=== PATIENT | female | born 1955 | race Caucasian/White ===

== ENCOUNTER 2017-01-31 02:36 | Inpatient (IN) | payer OTHER ==
[~2017-01-31] VITALS: Ht 162.6 cm; Wt 109.3 kg
[~2017-01-31 02:36] MED LIST: ALLOPURINOL100 M1 PO; ALPRAZOLAM1 M2 PO; BENTYL20 M1 PO; CLARITIN-D 241 EACH PO; COLCHICINE0.6 M2 PO; FOLIC ACID0.8 M2 PO; GABAPENTIN600 M1 PO; HYDROCHLOROTHIA25 M1 PO; LIALDA1.2 G1 PO; OMEPRAZOLE40 M1 PO; PREDNISONE10 M2 PO; TUMERIC PO; VICODIN 5-3001 EACH PO; VITAMIN C250 M3 PO; VITAMIN E100 UNI2 PO; ZOFRAN4 M2 PO
--- NOTE | 2017-01-31 12:32 | Operative Report ---
Operative/Inv Procedure Report Surgery Date: 01/31/17 Name of Procedure: Left total knee arthroplasty Pre-Operative Diagnosis: Left knee osteoarthritis primary Post-Operative Diagnosis: Same Estimated Blood Loss: less than 50ml Surgeon/Linotypist: JES SEYMOUR,Dylan HAYS Anesthesia: block Implants: Laurie triathlon-size 4 femur, size 3 tibia, 9 mm polyethylene insert cruciate retaining, 29 patella Drains: None Specimens: Femoral, tibial, patellar bone Microbiology: Urine Tourniquet: 58 minutes Complications: None Condition: Stable Operative Indication: Patient is a 61-year-old woman who has a long history of left knee pain. She's been treated with medications, injections, activity modifications and physical therapy for her diagnosis of ultimately end-stage osteoarthritis of the left knee. Conservative measures provided only short-term relief of her pain and symptoms. She wished to proceed with total knee arthroplasty after risks, benefits and expectations were discussed which included but were not limited to persistent knee pain, need for subsequent surgery, infection, DVT, injury to blood vessel or nerve and anesthesia risks Operative/Procedure Note Note: Patient was brought to the operating room and transferred to the operating table. Once under appropriate anesthesia the left lower extremity was prepped and draped in standard fashion. Preoperative IV antibiotic's were given prophylactically. A standard anterior incision was made after the leg was elevated exsanguinated and tourniquet was inflated. Incision was taken down sharply to the underlying retinaculum. A medial retinacular approach was used with extension into the quadriceps tendon. Osteophytes were excised. Remnants of the anterior horn of the medial lateral meniscal tissues were excised. Remnants of the ACL were excised. The knee was flexed patella was subluxed and then some osteophytes removed from the notch. I used a drill to enter the intramedullary canal for the intramedullary guide for the femoral cut. Guide was set for a 6 valgus cut. The cut was made while protecting the soft tissues. I then sized the femur to a size 4. Size 4 cutting jig was pinned in place and the 4 cuts were made while protecting the soft tissues and then the used the external tibial alignment guide and pin the cutting block for this cut in neutral position for medial to lateral and review space posterior slow-paced on preoperative templating and intraoperative findings. The cut was made after recessed the PCL in place and PCL retractor posteriorly. Tibia was sized to a size 3. I did a trial reduction with a size 3 tibia, size 4 femur and a 9 mm insert. Full extension. Patella was measured and the appropriate thickness was removed and replaced with a 29 mm patella. The 3 lug holes were drilled was taken through range of motion. 2 lug holes of the femur were drilled and the rotation of tibia was marked after and satisfied with the stability of the patellofemoral joint. All and she was removed from the knee. Final preparation the tibia included tibial punch completed. All instruments were removed from the knee copious irrigation the knee followed as the cement is was being mixed on the back table. Once the cement was ready was applied to the dry clean bony surfaces of the tibia. The into medullary hole in the femur was plugged with the anterior chamfer bone prior to cementing. Cement was applied to the dry clean bony surfaces of the femur. The size 3 tibia and the size [address] and excess cement was removed with curettes. The knee was taken out to full since with a 9 mm insert. Cement was applied to the dry clean bony surfaces of the patella. The 29 mm patella was impacted in place and excess cement was removed with a knife. As the cement was hardening in full extension I did appear articular pericapsular injection of exparel for postoperative pain management. Once the cement was hardening took the knee through range of motion. I was satisfied with the stability with a 9 mm insert. The trial insert was removed. The tibial tray was copiously irrigated. A major there was no remaining soft tissue, bone fragment or cement fragments within the tibial tray. The definitive size 9 mm cruciate retaining insert was impacted in place and the locking mechanism was confirmed. Knee was taken through range of motion I was satisfied with the full extension mid flexion stability and full flexion to gravity. Tourniquet was deflated at 58 minutes. Hemostasis was obtained. No drains were used. The retinaculum and quad tendon was closed with interrupted #1 Vicryl sutures. This was followed by subcutaneous subcutaneous case closure with 2-0 Vicryl in 2 layers and skin was closed with a running 3-0 Vicryl suture and the knee in flexion. Every level of closure was followed by copious irrigation. Appropriate just his were applied and patient was awakened and taken the recovery room in good condition. No intraoperative complications. Blood loss was approximately 50 mL Discharge Disposition: PACU
[2017-01-31] MEDS ORDERED: COUMADIN5 M2 PO (13:39)
[2017-01-31] MEDS ORDERED: DILAUDID2 M1 PO (13:40)
--- NOTE | 2017-01-31 13:46 | Patient Discharge Instructions ---
Discharge Instructions General Discharge Information You were seen/treated for: LEFT KNEE PAIN You had these procedures: LEFT TOTAL KNEE REPLACEMENT Watch for these problems: INCREASING PAIN DESPITE THE USE OF PAIN MEDICATION, REDNESS, WARMTH, SWELLING. DRAINAGE OF ANY TYPE FROM INCISION. INABILITY TO BEAR WEIGHT ON LEFT LEG. FEVER GREATER THAN 101.5 Do not soak the wound: Yes No bath, but you may shower: Yes Special Instructions: YOU ARE TAKING A BLOOD THINNING MEDICATION CALLED COUMADIN. ANOTHER NAME FOR THIS MEDICATION IS WARFARIN. THE DOSE OF THIS MEDICATION IS SUBJECT TO CHANGE DAILY. IT IS BASED ON LABWORK CALLED INR. YOUR INR WILL BE CHECKED AT A MINIMUM [address] ANDRE WILL BE MADE AWARE OF YOUR INR AND WILL INSTRUCT YOU TO HOW MUCH COUMADIN TO TAKE EACH DAY. PLEASE BE SURE YOU HAVE RECEIVED INSTRUCTIONS PRIOR TO TAKING. IF YOU HAVE NOT HEARD FROM HIS OFFICE, PLEASE CALL. Diet Continue normal diet: Yes Recommended Diet: Regular Additional DIET Information: ADVANCE TOLERATED Activity Full Activity/No Limits: No Activity Self Limited: Yes Pounds, do NOT lift more than: 10 Additional ACTIVITY Info: WEIGHT BEAR TOLERATED ON LEFT LEG Acute Coronary Syndrome Inclusion Criteria At DC or during hospital stay patient has or had the following: ACS DIAGNOSIS No Discharge Core Measures Meds if any: Prescribed or Continued at Discharge Meds if any: NOT Prescribed or Continued at Discharge Congestive Heart Failure Inclusion Criteria At DC or during hospital stay patient has or had the following: CHF DIAGNOSIS No Discharge Core Measures Meds if any: Prescribed or Continued at Discharge Meds if any: NOT Prescribed or Continued at Discharge Cerebrovascular accident Inclusion Criteria At DC or during hospital stay patient has or had the following: CVA/TIA Diagnosis No Discharge Core Measures Meds if any: Prescribed or Continued at Discharge Meds if any: NOT Prescribed or Continued at Discharge Venous thromboembolism Inclusion Criteria VTE Diagnosis No VTE Type NONE VTE Confirmed by (Test) NONE Discharge Core Measures - Per Current guidelines, there needs to be overlap - treatment for the first 5 days of Warfarin therapy. - If discharged on Warfarin prior to 5 days of - overlap therapy, the patient will need to be - assessed for post discharge needs including - *Post discharge parental anticoagulation - *Warfarin and/or parental anticoagulation education - *Follow up date to check INR post discharge At least 5 days overlap therapy as Inpatient No Meds if any: Prescribed or Continued at Discharge Note: Overlap Therapy is Warfarin and Anticoagulant Meds if any: NOT Prescribed or Continued at Discharge
--- NOTE | 2017-01-31 13:50 | Surgical Discharge Summary ---
Visit Information Visit Dates Admission Date: 01/31/17 Discharge Date: 02/03/17 History of Present Illness Chief Complaint: LEFT KNEE PAIN Medical History Neurological: NONE EENT: NONE Cardiovascular: PALPITATIONS Respiratory: bronchitis, emphysema Gastrointestinal: ulcerative colitis, SWOLLEN LOUISE Hepatic: NONE Renal: NONE Musculoskeletal: osteoarthritis, BURSITIS FIBROMYALGIA Psychiatric: anxiety, insomnia Endocrine: BORDERLINE DIABETIC Blood Disorders: NONE Cancer(s): NONE CONCESSION WORKER/Reproductive: OVARIAN CYST Surgical History Pertinent Surgical History: cholecystectomy, Psychosocial History What is Your Primary Language? Latvian Review of Systems: SEE H&P Hospital Course Course Attending Physician: JES SEYMOUR,[facility] Primary Care Physician: MARY ANN SEYMOUR,[facility] Course: VON WAS ADMITTED TO HOSPITAL ON 01/31/2017 FOR AN ELECTIVE LEFT TOTAL KNEE REPLACEMENT. SHE TOLERATED THE PROCEDURE WELL. SHE WAS TRANSFERRED TO A GENERAL SURGICAL FLOOR. HER DIET WAS ADVANCED TOLERATED. SHE VOIDED SPONTANEOUSLY. HER VITAL SIGNS WERE STABLE AND WITHIN NORMAL LIMITS. HER PAIN WAS WELL CONTROLLED WITH ORAL PAIN MEDICATIONS. SHE WAS EVALUATED AND TREATED BY PHYSICAL THERAPY. SHE WAS DEEMED APPROPRITE FOR DISCHARGE. Complications: None Allergies: Coded Allergies: codeine (Intermediate, SICK TO STOMACH 04/03/16) oxycodone (From PERCOCET) (Mild, ITCHY ON THE INSIDE 04/03/16) NSAIDS (Non-Steroidal Anti-Inflamma (UNKNOWN 01/31/17) FROM ORDER SHEET OF 01/31/17 (SJS) Sulfa (Sulfonamide Antibiotics) (HAS ULCERATIVE COLITIS 04/09/16) varenicline (From CHANTIX) (? 01/21/17) aspirin (R/T HX ULCERATIVE COLITIS 04/03/16) duloxetine (From CYMBALTA) (I ZONED AND LOOKED LIKE A MAD WOMAN 04/03/16) Disposition Summary Disposition Principal Diagnosis: LEFT KNEE UNILATERAL PRIMARY OSTEOARTHRITIS Additional Diagnosis: NONE Discharge Disposition: SNF Discharge Instructions General Discharge Information Code Status: Full Code Patient's Diet: REGULAR, ADVANCE TOLERATED Patient's Activity: WEIGHT BEAR TOLERATED ON LEFT LEG Follow-Up Instructions/Appts: PLEASE CONTACT DR. ANDRE' OFFICE TO ARRANGE/CONFIRM FOLLOW UP APPOINTMENT. HE WOULD LIKE FOR YOU TO BE SEEN IN 2 WEEKS FROM DATE OF SURGERY. Medications at Discharge Discharge Medications: Continue taking these medications: Mesalamine (Lialda) 1.2 GM TABLET.DR 1 Tablet ORAL TWICE DAILY Qty = 60 Comments: PER PT Omeprazole (Omeprazole) 40 MG CAPSULE.DR 1 Capsule ORAL TWICE DAILY Qty = 60 Comments: PER PT Alprazolam (Alprazolam) 1 MG TABLET 1 Tablet ORAL THREE TIMES A DAY NEEDED as needed for ANXIETY Qty = 90 Comments: PER PT Gabapentin (Gabapentin) 600 MG TABLET 1 Tablet ORAL THREE TIMES DAILY as needed for NERVE PAIN Qty = 90 Comments: PER PT Allopurinol (Allopurinol) 100 MG TABLET 1 Tablet ORAL TWICE DAILY Loratadine/Pseudoephedrine (Claritin-D 24 Hour Tablet) 10 MG-240 MG TAB.ER.24H 1 Tablet ORAL DAILY Start taking the following new medications: Warfarin Sodium (Coumadin) 5 MG TABLET 1 Tablet ORAL DAILY Qty = 30 No Refills Instructions: DOSE MAY CHANGE DAILY, AWAIT SPECIFIC INSTRUCTIONS PRIOR TO TAKING Hydromorphone HCl (Dilaudid) 2 MG TABLET 1-2 Tablet ORAL EVERY 4-6 HOURS as needed for PAIN Qty = 36 No Refills
[2017-01-31 16:00] VITALS: BP 120/56
--- NOTE | 2017-01-31 16:38 | PN- Orthopedic ---
Subjective Subjective: poc s/p left tka comfortable, no major complaints deneis cp, sob, no n+v Objective Vital Signs and I&Os vss Physical Exam: cv: rrr lungs: clear abd: soft, +bs ext: left le drsg dry distal cms intact on-q in place pulliam: clear urine Assessment/Plan Assessment/Plan ortho stable plan coumadin for dvt prophpylaxis keep pulliam til am may be oob to chair with nursing staff advance diet as tolerated keep ivf until leon po snf planning Core Measures/Miscellaneous Venous Thromboembolism VTE Risk Factors: Age > 40, Surgery VTE Contraindications: No Contraindications VTE Diagnosis: No Beta Luis Is Beta Luis a Home Med? No Antibiotics Is Patient on Antibiotics? Yes
[2017-01-31 19:34] VITALS: BP 137/67
[2017-01-31 20:20] VITALS: BP 120/72
[2017-01-31 22:23] VITALS: BP 140/80
[2017-02-01 01:57] VITALS: BP 122/72
[2017-02-01 07:13] VITALS: BP 138/74
--- NOTE | 2017-02-01 07:57 | PN- Orthopedic ---
See Addendum Subjective Subjective: Patient without complaints of significant pain this am. Has yet to ambulate. Denies chest pain, shortness of breath and difficulty breathing. Denies nausea and vomitting. Has been tolerating po. Objective Vital Signs and I&Os Vital Signs Date Time Temp Pulse Resp B/P Pulse O2 O2 Flow FiO2 Ox Delivery Rate 02/01 0713 97.6 65 20 138/74 94 Nasal 2.0L Cannula 02/01 0157 97.7 74 20 122/72 93 Nasal 2.0L Cannula 02/01 0000 Nasal 2.0L Cannula 01/31 2223 98.8 70 20 140/80 98 01/31 2020 97.8 80 20 120/72 95 01/31 1934 97.9 76 20 137/67 94 Nasal 2.0L Cannula 01/31 1600 94 Nasal 2.0L Cannula 01/31 1600 97.8 66 16 120/56 94 Nasal 2.0L Cannula Intake & Output 02/01 0800 / 0000 01/31 1600 01/31 0800 01/31 0000 01/30 1600 Intake Total 975 Output Total 350 1550 Balance -350 -575 Intake, IV 525 Intake, Oral 450 Output, Urine 350 1550 Patient 241 lb Weight Physical Exam: General: Alert and oriented x3, no acute distress Cardiac: RRR, s1s2 Pulmonary: CTA bilaterally Abdomen: Non-distended, non-tender Extremiteis: Moves all extremities, distal sensation intact. Motor 5/5 in plantar and dorsi flexion. Skin warm and well perfused. DP pulses palpable bilaterally. Bilateral calves soft and non-tender. Surgical site: Left leg: Dressing dry and intact. ON Q in place, no suggestion of leak Assessment/Plan Assessment/Plan This is a 61 year old female. POD 1, s/p left TKR. PMH significant for ulcerative coliltis. -LIALDA: Patient to take home medication, substitute from our pharmacy not acceptable per her GI doctor. Spoke with Michael Chappell from pharmacy, home med ordered as non-formulary and will be assessed by pharmacy prior to being approved for administration. -IV FLUIDS: to be d/c'd, patient tolerating adequate po -BRUMFIELD CATHETER: to be d/c'd -PAIN: Continue current pain regimen -ACTIVITY: OOB with pt today, ambulate. WBAT. Patient instructed to no longer rest with pillow under surgical knee -LABS: F/U cbc, bep. inr -DVT ppx: Coumadin to be dosed daily per INR, target INR 2-3, ALPS in place Will d/w Dr. Payton Core Measures/Miscellaneous Venous Thromboembolism VTE Risk Factors: Age > 40, Surgery VTE Contraindications: No Contraindications VTE Diagnosis: No Beta Luis Is Beta Luis a Home Med? No Antibiotics Is Patient on Antibiotics? Yes
[2017-02-01 08:12] LABS: ABSOLUTE BASOPHIL COUNT 0 /CUMM (0.0-0.2); ABSOLUTE EOSINOPHIL COUNT 0 /CUMM (0.0-0.7); ABSOLUTE GRANULOCYTE CT 9.7 /CUMM (1.4-6.5); ABSOLUTE LYMPH COUNT 1.2 /CUMM (1.2-3.4); ABSOLUTE MONOCYTE COUNT 0.6 /CUMM (0.10-0.60); BASOPHIL % 0.2 % (0.0-2.0); EOSINOPHIL % 0.1 % (0-5); HEMATOCRIT 42.1 % (37-47); MEAN CORPUSCULAR HGB 28.8 PG (27.0-31.0); MEAN CORPUSCULAR HGB CONC 32.7 G/DL (33.0-37.0); MEAN CORPUSCULAR VOLUME 87.9 FL (81.0-99.0); MEAN PLATELET VOLUME 8.3 FL (7.4-10.4); PLATELET COUNT 238 /CUMM (130-400); RBC DISTRIBUTION WIDTH 14.8 % (11.5-14.5); RED BLOOD CELL CT 4.79 /CUMM (4.20-5.40); WHITE BLOOD CELL COUNT 11.5 /CUMM (4.8-10.8)
[2017-02-01 08:51] LABS: PT 11.8 SEC (9.4-12.5)
[2017-02-01 08:55] LABS: GRANULOCYTE % 84.1 % (42.2-75.2)
[2017-02-01 10:52] VITALS: BP 108/63
[2017-02-01 13:58] VITALS: BP 112/68
[2017-02-01 22:31] VITALS: BP 124/68
--- NOTE | 2017-02-02 07:34 | PN- Orthopedic ---
See Addendum Subjective Subjective: Reports pain improves with dilaudid tablets. Low grade temp (99) overnight, but admits she hasn't been using an incentive spirometer. Denies chills/sweats. No dysuria. No shortness of breath. No dizziness. No chest pains. Passing flatus but no bm yet. Out of bed with PT yesterday, ambulating with rolling walker assistance. Anticipates discharge to [facility] tomorrow. Objective Vital Signs and I&Os Vital Signs Date Time Temp Pulse Resp B/P Pulse O2 O2 Flow FiO2 Ox Delivery Rate 02/01 2231 98.2 69 19 124/68 97 02/01 1428 Room Air 2.0L 02/01 1358 98.3 69 20 112/68 95 02/01 1052 98.0 70 20 108/63 92 Room Air Intake & Output 02/02 0800 02/02 0000 02/01 1600 02/01 0800 02/01 0000 01/31 1600 Intake Total 480 1020 1000 975 Output Total 700 282 985 3917 Balance -220 420 650 -575 Intake, IV 300 600 525 Intake, Oral 480 720 400 450 Number 0 Bowel Movements Output, Urine [phone] Patient 241 lb Weight Physical Exam: General - alert & oriented x 3. comfortable. no acute distress. Lungs - clear bilaterally. no w/r/r. Cardiac - s1s2. reg. Abdomen - soft. nontender. Extremities - warm bilaterally. dressing changed, left knee. steri strips in place. no erythema or exudates. calves soft and nontender b/l. on q removed. nvi. Assessment/Plan Assessment/Plan This is a 61 year old female with hx UC POD#2 s/p left TKR tolerating diet pain controlled with dilaudid dressing changed on q removed f/u labs coumadin accordingly - dvt ppx continue PT IS teaching bowel regime ordered d/c planning, likely [facility] tomorrow will d/w Core Measures/Miscellaneous Venous Thromboembolism VTE Risk Factors: Age > 40, Surgery VTE Contraindications: No Contraindications VTE Diagnosis: No Beta Luis Is Beta Luis a Home Med? No Antibiotics Is Patient on Antibiotics? Yes
[2017-02-02 07:45] VITALS: BP 112/60
[2017-02-02 08:18] LABS: ABSOLUTE BASOPHIL COUNT 0.1 /CUMM (0.0-0.2); ABSOLUTE EOSINOPHIL COUNT 0.2 /CUMM (0.0-0.7); ABSOLUTE GRANULOCYTE CT 6.7 /CUMM (1.4-6.5); ABSOLUTE LYMPH COUNT 3.2 /CUMM (1.2-3.4); ABSOLUTE MONOCYTE COUNT 1.1 /CUMM (0.10-0.60); BASOPHIL % 0.5 % (0.0-2.0); EOSINOPHIL % 1.5 % (0-5); HEMATOCRIT 40.9 % (37-47); MEAN CORPUSCULAR HGB 28.7 PG (27.0-31.0); MEAN CORPUSCULAR HGB CONC 32.6 G/DL (33.0-37.0); MEAN CORPUSCULAR VOLUME 88.1 FL (81.0-99.0); MEAN PLATELET VOLUME 8.3 FL (7.4-10.4); PLATELET COUNT 209 /CUMM (130-400); PT 13.5 SEC (9.4-12.5); RBC DISTRIBUTION WIDTH 14.7 % (11.5-14.5); RED BLOOD CELL CT 4.64 /CUMM (4.20-5.40); WHITE BLOOD CELL COUNT 11.2 /CUMM (4.8-10.8)
--- NOTE | 2017-02-02 10:40 | RADIOLOGY REPORT ---
EXAMINATION: XR KNEE, LEFT CLINICAL INFORMATION: Status post left total knee arthroplasty. COMPARISON: None TECHNIQUE: 2 views, 3 images of the left knee. FINDINGS: Postsurgical changes of total left knee arthroplasty are noted showing intact hardware and satisfactory alignment. Moderate diffuse osteopenia is noted involving all the visualized bones. IMPRESSION: Postsurgical changes of total left knee arthroplasty showing intact hardware and satisfactory alignment.
[2017-02-02 14:17] VITALS: BP 120/70
[2017-02-02 22:46] VITALS: BP 124/78
[2017-02-03 06:38] VITALS: BP 110/71
[2017-02-03 08:12] LABS: ABSOLUTE BASOPHIL COUNT 0 /CUMM (0.0-0.2); ABSOLUTE EOSINOPHIL COUNT 0.3 /CUMM (0.0-0.7); ABSOLUTE GRANULOCYTE CT 5.4 /CUMM (1.4-6.5); ABSOLUTE LYMPH COUNT 2.5 /CUMM (1.2-3.4); BASOPHIL % 0.3 % (0.0-2.0); EOSINOPHIL % 3.4 % (0-5); GRANULOCYTE % 58.6 % (42.2-75.2); HEMATOCRIT 41.7 % (37-47); MEAN CORPUSCULAR HGB 28.7 PG (27.0-31.0); MEAN CORPUSCULAR VOLUME 86.9 FL (81.0-99.0); MEAN PLATELET VOLUME 8.3 FL (7.4-10.4); PLATELET COUNT 210 /CUMM (130-400); WHITE BLOOD CELL COUNT 9.1 /CUMM (4.8-10.8)
[2017-02-03 08:21] LABS: PT 15.6 SEC (9.4-12.5)
--- NOTE | 2017-02-03 10:50 | PN- Orthopedic ---
Subjective Subjective: Reports feeling constipated, had hard , small BM yesterday Pt. states she wants to go to rehab. Took Dilaudid PO yesterday, none today.Ambualting with walker around the marie Objective Vital Signs and I&Os Vital Signs Date Time Temp Pulse Resp B/P Pulse O2 O2 Flow FiO2 Ox Delivery Rate 02/03 638 98.9 97 20 110/71 94 Room Air 02/02 2246 98.4 80 20 124/78 96 Room Air 02/02 1417 99.4 72 18 120/70 92 Room Air Intake & Output 02/03 1600 02/03 0800 02/03 0000 02/02 1600 02/02 0800 02/02 0000 Intake Total 330 800 600 500 480 Output Total 600 800 700 Balance -270 800 -200 500 -220 Intake, Oral 330 800 600 500 480 Output, Urine 600 800 700 Alert, oriented, no distress. Heart regular Lungs clear bilat. Abdomen soft, non distended, Left knee incision is clean, dry. No erythrema or drainage. No calf pain. Dressing intact. Neru vasc, exam intact. No ankle edema Assessment/Plan Assessment/Plan s/p L TKR for OA POD #3 Pt. is stable L knee incison without signs of infection. Abdominal exam is benign. Constipation, will cont. MOM.She states it worked for her in the past Lab today unremarkable. Anticipate d/c today PT note appreciated, would benefit from skilled PT at home. Pt wishes to go to rehab. I discussed with senior production planner who is awaiting authorization approval from insurance company. Core Measures/Miscellaneous Venous Thromboembolism VTE Risk Factors: Age > 40, Surgery VTE Contraindications: No Contraindications VTE Diagnosis: No Beta Luis Is Beta Luis a Home Med? No Antibiotics Is Patient on Antibiotics? Yes
[2017-02-03 11:40] VITALS: BP 110/71
== END 2017-02-03 15:59 | DRG 470 ==
LOC: ENRESERVDT → ENRESERVTM → 2NB 02:36 → SDA 02:36 → ENPENDDIS 02:36 → 2NB 15:56
PROVIDERS: Physician Assistant; Physician Assistant Surgical; ADMIT Orthopaedic Surgery
PROC: 0SRD0J9 Replacement of Left Knee Joint with Synthetic Substitute, Cemented, Open Approach (ICD-10-PCS; principal; 2017-01-31)
DX: M17.12 Unilateral primary osteoarthritis, left knee (principal); K51.90 Ulcerative colitis, unspecified, without complications; Z68.41 Body mass index [BMI] 40.0-44.9, adult; E66.01 Morbid (severe) obesity due to excess calories; M10.9 Gout, unspecified; K21.9 Gastro-esophageal reflux disease without esophagitis; F17.200 Nicotine dependence, unspecified, uncomplicated; R73.03 Prediabetes; M79.7 Fibromyalgia
CPT/HCPCS: 2NBP; 2NBSP; 36415; 73560-LT; 82436; 87086; 88305; 97110-GO; 97116-GO; 97161-GP; 97530-GO; C1713; C9290; J0131; J0171; J1885; J2405; J2795; J3370; J7040